=== PATIENT | female | born 1990 | race African-American/Black ===

== ENCOUNTER 2017-01-18 02:12 | Emergency (ER) | payer OTHER ==
[~2017-01-18] VITALS: Ht 188 cm; Wt 102.5 kg
[~2017-01-18 02:12] MED LIST: BACTRIM,SEPT1 TABLET PO; FLEXERIL10 MG PO; KEFLEX500 MG PO; Motrin PO; PERCOCET 5/31 TABLET PO; PYRIDIUM200 MG PO; Procardia XL,Adalat PO; ULTRAM50 MG PO; ZOFRAN ODT4 MG PO
[2017-01-18] MEDS ORDERED: NORCO 5/3251 TABLET PO (02:33)
[2017-01-18] MEDS ORDERED: PEN-VEE K,VEET500 MG PO (02:33)
[2017-01-18 02:58] VITALS: BP 161/106
== END 2017-01-18 02:59 | disposition home or self-care (01) ==
LOC: EME 02:12
PROC: 3E0X3BZ Introduction of Anesthetic Agent into Cranial Nerves, Percutaneous Approach (ICD-10-PCS; principal; 2017-01-18)
DX: K04.7 Periapical abscess without sinus (principal); K02.9 Dental caries, unspecified; F17.210 Nicotine dependence, cigarettes, uncomplicated; Q61.3 Polycystic kidney, unspecified
CPT/HCPCS: 99281; 99284

== ENCOUNTER 2018-04-29 19:41 | Emergency (ER) | payer OTHER ==
[~2018-04-29] VITALS: Ht 188 cm; Wt 95.7 kg
[~2018-04-29 19:41] MED LIST changes: +NORCO 5/3251 TABLET PO; +PEN-VEE K,VEET500 MG PO
[2018-04-29 20:41] LABS: BASOPHIL (%) 0.2 % (0-1); EOSINOPHIL (%) 0.9 % (0-5); EOSINOPHIL COUNT 0.1 K/uL (0-0.3); HEMATOCRIT 34.3 % (36.0-46.0); HEMOGLOBIN 11.8 G/DL (11.9-15.5); IMMATURE GRANULOCYTE (%) 0.4 % (0.0-0.7); LYMPHOCYTE (%) 16.6 % (15-42); LYMPHOCYTE COUNT 1.9 K/uL (1.0-2.8); MCH 32.6 PG (29.0-34.0); MCHC 34.4 G/DL (30.0-36.0); MCV 94.8 FL (83-99); MONOCYTE (%) 7.8 % (3-12); MONOCYTE COUNT 0.9 K/uL (0-0.8); NEUTROPHIL (%) 74.1 % (45-76); NEUTROPHIL COUNT 8.4 K/uL (1.8-6.4); PLATELET COUNT 184 K/uL (156-360); RBC DIS.WIDTH-CV 11.9 % (11.8-14.6); RBC DIS.WIDTH-SD 41.9 % (39-53); RED BLOOD COUNT 3.62 M/uL (3.80-5.20); WHITE BLOOD COUNT 11.3 K/uL (4.1-10.2)
[2018-04-29 21:17] LABS: ALBUMIN 4.1 g/dL (3.2-4.8); CHLORIDE 101 mEq/L (99-109); POTASSIUM 3.4 mEq/L (3.7-5.4); SODIUM 134 mEq/L (136-147)
[2018-04-29 21:19] LABS: GLUCOSE 88 mg/dL (70-99); TOTAL PROTEIN 7.5 g/dL (6.4-8.3)
[2018-04-29 21:21] LABS: TOTAL BILIRUBIN 0.7 mg/dL (0.0-1.0)
[2018-04-29 21:23] LABS: ALKALINE PHOSPHATASE 86 IU/L (3-129); CREATININE 0.8 mg/dL (0.6-1.3); GFR ESTIMATE (CALCULATED) > 59 mL/min/
[2018-04-29 21:24] LABS: AST (GOT) 16 IU/L (2-34); DIRECT BILIRUBIN 0.4 mg/dL (0.0-0.3); UREA NITROGEN (BUN) 15 mg/dL (9-23)
[2018-04-29 21:26] LABS: ALT (GPT) 14 IU/L (3-49)
[2018-04-29 21:30] LABS: APPEARANCE CLEAR ((CLEAR)); BILIRUBIN NEGATIVE; BLOOD SMALL; COLOR YELLOW ((YELLOW)); GLUCOSE (STRIP) NEGATIVE; KETONES 80; LEUKOCYTES NEGATIVE; NITRITE NEGATIVE; PROTEIN (STRIP) 30; SPECIFIC GRAVITY 1.017 (1.000-1.030); UROBILINOGEN 0.2 MG/DL (0.2-1.0)
[2018-04-29 21:50] LABS: BACTERIA NONE SEEN /HPF; EPITHELIAL CELLS 1+ /HPF; HYALINE CASTS 0-5 /LPF; MUCUS TRACE /LPF; RED BLOOD CELLS 0-5 /HPF (0-5)
[2018-04-29 22:13] LABS: QUANTITATIVE HCG < 4.0 MIU/ML
[2018-04-29] MEDS ORDERED: BENTYL20 MG PO (23:32)
[2018-04-29] MEDS ORDERED: ZOFRAN ODT8 MG PO (23:32)
[2018-04-29] MEDS ORDERED: FLAGYL500 MG PO (23:32)
[2018-04-29] MEDS ORDERED: CIPRO500 MG PO (23:32)
[2018-04-29] MEDS ORDERED: VENTOLIN HFA18 GM IH (23:35)
[2018-04-30 00:11] VITALS: BP 139/80
== END 2018-04-30 00:12 | disposition home or self-care (01) ==
LOC: EME 19:41
PROVIDERS: Physician Assistant
DX: K52.9 Noninfective gastroenteritis and colitis, unspecified (principal); R03.0 Elevated blood-pressure reading, without diagnosis of hypertension; Q61.3 Polycystic kidney, unspecified; J40 Bronchitis, not specified as acute or chronic; F17.200 Nicotine dependence, unspecified, uncomplicated
CPT/HCPCS: 71046; 74176; 80048; 80076; 81003; 84702; 85025; 94640; 99281; 99284; J0500